=== PATIENT | male | born 1970 | race Hispanic/Latino ===

== ENCOUNTER 2019-07-17 03:56 | Emergency (ER) | payer SELFPAY ==
--- NOTE | 2019-07-17 05:34 | XRay Report ---
RIGHT ELBOW 3 VIEWS INDICATION / CLINICAL INFORMATION: Right elbow pain, swelling, and redness. COMPARISON: None available. FINDINGS: Moderate diffuse soft tissue swelling is seen within the right elbow possibly secondary to cellulitis . No acute fracture or dislocation is seen. Focal ossific density is seen along the medial aspect of elbow likely secondary to heterotopic ossification related to chronic common flexor tendon tear. Signer Name: Ahsan Browne MD Signed: 07/17/2019 5:29 AM Workstation Name: [id number]
[2019-07-17] MEDS ORDERED: PERCOCET 5/325 PO ONE (06:32)
[2019-07-17] MEDS ORDERED: BACTRIM DS PO ONE (06:33)
--- NOTE | 2019-07-17 06:47 | Emergency Department Report ---
ED General Adult HPI - General Chief complaint: Extremity Injury, Upper Stated complaint: ARM PAIN Time Seen by Provider: 07/17/19 06:01 Source: patient Mode of arrival: Ambulatory Limitations: No Limitations - History of Present Illness Initial comments: Patient is a 48-year-old male who presents with right elbow pain that has been going on since this past Thursday. Patient denies having any injury patient states that nothing makes the pain better and nothing makes it worse. Patient's pain is an 8 out of 10 he states that it's warm to touch. Patient denies any trauma towards his elbow. - Related Data Previous Rx's Medication Instructions Recorded Last Taken Type Acetaminophen/Codeine [Tylenol 1 tab PO Q6H PRN #13 tab 07/17/19 Unknown Rx /Codeine # 3 tab] Sulfamethoxazole/Trimethoprim 1 each PO BID #14 tablet 07/17/19 Unknown Rx [Bactrim DS TAB] Allergies Allergy/AdvReac Type Severity Reaction Status Date / Time No Known Allergies Allergy Unverified 07/17/19 04:26 ED Review of Systems ROS: Stated complaint: ARM PAIN Other details as noted in HPI Constitutional: denies: chills, fever Eyes: denies: eye pain, eye discharge, vision change ENT: denies: ear pain, throat pain Respiratory: denies: cough, shortness of breath, wheezing Cardiovascular: denies: chest pain, palpitations Endocrine: no symptoms reported Gastrointestinal: denies: abdominal pain, nausea, diarrhea Genitourinary: denies: urgency, dysuria Musculoskeletal: denies: back pain, joint swelling, arthralgia Skin: rash. denies: lesions Neurological: denies: headache, weakness, paresthesias Psychiatric: denies: anxiety, depression Hematological/Lymphatic: denies: easy bleeding, easy bruising ED Past Medical Hx - Past Medical History Previous Medical History?: No - Surgical History Past Surgical History?: No - Social History Smoking Status: Current Every Day Smoker - Medications Home Medications: Home Medications Medication Instructions Recorded Confirmed Last Taken Type Acetaminophen/Codeine [Tylenol 1 tab PO Q6H PRN #13 tab 07/17/19 Unknown Rx /Codeine # 3 tab] Sulfamethoxazole/Trimethoprim 1 each PO BID #14 tablet 07/17/19 Unknown Rx [Bactrim DS TAB] ED Physical Exam - General Limitations: No Limitations General appearance: alert, in no apparent distress - Head Head exam: Present: atraumatic, normocephalic - Eye Eye exam: Present: normal appearance - ENT ENT exam: Present: mucous membranes moist - Neck Neck exam: Present: normal inspection - Respiratory Respiratory exam: Present: normal lung sounds bilaterally. Absent: respiratory distress - Cardiovascular Cardiovascular Exam: Present: regular rate, normal rhythm. Absent: systolic murmur, diastolic murmur, rubs, gallop - GI/Abdominal GI/Abdominal exam: Present: soft, normal bowel sounds - Rectal Rectal exam: Present: deferred - Extremities Exam Extremities exam: Present: tenderness (right elbow tenderness) - Back Exam Back exam: Present: normal inspection - Neurological Exam Neurological exam: Present: alert, oriented X3 - Psychiatric Psychiatric exam: Present: normal affect, normal mood - Skin Skin exam: Present: warm, dry, intact, normal color. Absent: rash ED Course Vital Signs 07/17/19 07/17/19 04:33 06:45 Temperature 97.7 F Pulse Rate 68 Respiratory 12 16 Rate Blood Pressure 98/61 O2 Sat by Pulse 98 Oximetry ED Medical Decision Making - Radiology Data Radiology results: report reviewed, image reviewed X-ray: Shows no acute osseous injury shows soft tissue swelling concerning for cellulitis - Medical Decision Making Medical diagnosis: Right elbow cellulitis Differential medical diagnosis: Right elbow fracture, proximal radius fracture X-rays are negative patient will go home with a sling and Bactrim and Tylenol 3 to go home with patient agrees to plan additional verbal discharge instructions were given Critical care attestation.: If time is entered above; I have spent that time in minutes in the direct care of this critically ill patient, excluding procedure time. ED Disposition Clinical Impression: Cellulitis of right elbow Disposition: DC-01 TO HOME OR SELFCARE Is pt being admited?: No Does the pt Need Aspirin: No Condition: Stable Instructions: Cellulitis (ED) Prescriptions: Sulfamethoxazole/Trimethoprim [Bactrim DS TAB] 1 each PO BID #14 tablet Acetaminophen/Codeine [Tylenol /Codeine # 3 tab] 1 tab PO Q6H PRN #13 tab PRN Reason: Pain , Severe (7-10)
[2019-07-17 07:34] VITALS: BP 109/57
== END 2019-07-17 07:35 | disposition home or self-care (01) ==
LOC: ED 03:56
DX: L03.113 Cellulitis of right upper limb (principal)

== ENCOUNTER 2019-07-25 10:48 | Emergency (ER) | payer SELFPAY ==
[2019-07-25] MEDS ORDERED: ZOFRAN IM ONE (12:51)
[2019-07-25] MEDS ORDERED: MORPHINE IM ONE (12:51)
--- NOTE | 2019-07-25 12:56 | Emergency Department Report ---
ED Extremity Problem HPI - General Chief complaint: Extremity Problem,Nontraumatic Stated complaint: RT ARM PAIN Time Seen by Provider: 07/25/19 12:41 Source: patient Mode of arrival: Ambulatory Limitations: No Limitations - History of Present Illness Initial comments: Patient is 48 years old male with no significant past medical history. Patient presented to the ER complaining of right pain that started immediately after he tried to grab something quickly. He stated that he felt significant muscle spasm and patient just above the right elbow. Patient was seen here last week for cellulitis over the right elbow skin. Patient was taking Bactrim and he stated that his skin looks much better. MD Complaint: extremity pain, extremity swelling -: days(s) Location: right, upper extremity - Related Data Previous Rx's Medication Instructions Recorded Last Taken Type Acetaminophen/Codeine [Tylenol 1 tab PO Q6H PRN #13 tab 07/17/19 Unknown Rx /Codeine # 3 tab] Sulfamethoxazole/Trimethoprim 1 each PO BID #14 tablet 07/17/19 Unknown Rx [Bactrim DS TAB] Allergies Allergy/AdvReac Type Severity Reaction Status Date / Time No Known Allergies Allergy Unverified 07/17/19 04:26 ED Review of Systems ROS: Stated complaint: RT ARM PAIN Other details as noted in HPI Comment: All other systems reviewed and negative Constitutional: denies: chills, fever Respiratory: denies: cough Cardiovascular: denies: chest pain Gastrointestinal: denies: abdominal pain, nausea Musculoskeletal: denies: back pain Neurological: denies: headache, weakness, numbness, paresthesias, confusion, abnormal gait ED Past Medical Hx - Past Medical History Previous Medical History?: No - Surgical History Past Surgical History?: No - Social History Smoking Status: Current Every Day Smoker Substance Use Type: None - Medications Home Medications: Home Medications Medication Instructions Recorded Confirmed Last Taken Type Acetaminophen/Codeine [Tylenol 1 tab PO Q6H PRN #13 tab 07/17/19 Unknown Rx /Codeine # 3 tab] Sulfamethoxazole/Trimethoprim 1 each PO BID #14 tablet 07/17/19 Unknown Rx [Bactrim DS TAB] ED Physical Exam - General Limitations: No Limitations General appearance: alert, in no apparent distress - Head Head exam: Present: atraumatic, normocephalic, normal inspection - Eye Eye exam: Present: normal appearance, PERRL - ENT ENT exam: Present: normal exam, normal orophraynx, mucous membranes moist - Neck Neck exam: Present: normal inspection, full ROM. Absent: tenderness, meningi smus, lymphadenopathy, thyromegaly - Respiratory Respiratory exam: Present: normal lung sounds bilaterally - Cardiovascular Cardiovascular Exam: Present: regular rate, normal rhythm, normal heart sounds - GI/Abdominal GI/Abdominal exam: Present: soft, normal bowel sounds. Absent: distended, tenderness, guarding, rebound, rigid, organomegaly, mass, bruit, pulsatile mass, hernia - Expanded Upper Extremity Exam Right General: Present: normal inspection Shoulder Exam: Present: normal inspection, full ROM. Absent: tenderness, swelling, abrasion, laceration, ecchymosis Upper Arm exam: Present: normal inspection, full ROM, tenderness. Absent: swelling, abrasion, laceration, ecchymosis, deformity, crepidus, dislocation, erythema Elbow exam: Present: tenderness, other (cellulitis that appears healing well). Absent: swelling Hand Wrist exam: Present: normal inspection - Back Exam Back exam: Present: normal inspection. Absent: CVA tenderness (R), CVA tenderness (L) - Neurological Exam Neurological exam: Present: alert, oriented X3, CN II-XII intact, normal gait, reflexes normal - Psychiatric Psychiatric exam: Present: normal mood - Skin Skin exam: Present: warm, intact, normal color ED Course Vital Signs 07/25/19 11:00 Temperature 97.7 F Pulse Rate 90 Respiratory 20 Rate Blood Pressure 111/59 O2 Sat by Pulse 98 Oximetry ED Medical Decision Making - Lab Data Result diagrams: 07/25/19 13:55 07/25/19 13:55 - Radiology Data Radiology results: report reviewed - Medical Decision Making Patient is 48 years old male with no significant past medical history. Patient presented to the ER complaining of right pain that started immediately after he tried to grab something quickly. He stated that he felt significant muscle spasm and patient just above the right elbow. Patient was seen here last week for cellulitis over the right elbow skin. Patient was taking Bactrim and he stated that his skin looks much better. Patient received morphine pain. Patient stated that he is feeling much better. Patient stated that he is able to move his right elbow better than before. Patient left elbow x-ray is negative for acute finding. Labs reviewed and is un remarkable. Patient given Dr. Harshad, orthopedics to follow-up with the next 2- 3 days and also advised to return to the ER if symptoms are not improved. Critical care attestation.: If time is entered above; I have spent that time in minutes in the direct care of this critically ill patient, excluding procedure time. ED Disposition Clinical Impression: Elbow pain, right, Arm pain Disposition: TO HOME OR SELFCARE Is pt being admited?: No Condition: Stable Instructions: Elbow Sprain (ED) Referrals: PRIMARY CAREMD [Primary Care Provider] - 3-5 Days NEAL WOOD MD [Staff Physician] - 3-5 Days
--- NOTE | 2019-07-25 13:37 | XRay Report ---
RIGHT ELBOW, 3 VIEWS INDICATION: pain and swelling s/p fall. COMPARISON: 07/17/2009 IMPRESSION: Moderate posterior soft tissue swelling is again identified. A 4 mm calcific density is now seen posterior to the olecranon which is of uncertain significance. This could represent a foreig n body or avulsion injury. There is no evidence for acute fracture or joint pathology. No joint effus ion is identified. No significant DJD. Signer Name: Curtis Gallegos Jr, MD Signed: 07/25/2019 1:33 PM Workstation Name: [id number]
[2019-07-25 14:18] LABS: Basophils % (Auto) 0.6 % (0.0-1.8); Eosinophils # (Auto) 0.4 K/mm3 (0.0-0.4); Eosinophils % (Auto) 5.2 % (0.0-4.3); Hemoglobin 12.4 gm/dl (11.8-15.2); Lymphocytes # (Auto) 2.2 K/mm3 (1.2-5.4); Lymphocytes % (Auto) 29.9 % (13.4-35.0); Mean Corpuscular HGB Conc 34 % (32-34); Mean Corpuscular Volume 90 fl (84-94); Monocytes # (Auto) 0.6 K/mm3 (0.0-0.8); Monocytes % (Auto) 8.3 % (0.0-7.3); Platelet Count 375 K/mm3 (140-440); Red Cell Distribution Width 12.5 % (13.2-15.2)
[2019-07-25 14:30] LABS: BUN/Creatinine Ratio 14; Blood Urea Nitrogen 13 mg/dL (9-20); Calcium 9.3 mg/dL (8.4-10.2); Hemolysis Index 9
[2019-07-25 15:42] VITALS: BP 118/61
== END 2019-07-25 15:41 | disposition home or self-care (01) ==
LOC: ED 10:48
DX: M79.601 Pain in right arm (principal); M25.521 Pain in right elbow; F17.200 Nicotine dependence, unspecified, uncomplicated; Z79.899 Other long term (current) drug therapy
CPT/HCPCS: 36415; 73080; 80048; 85025; 96372; 99283; J2270; J2405